=== PATIENT | male | born 1995 | race African-American/Black ===

== ENCOUNTER 2021-02-11 19:18 | Emergency (ER) | payer OTHER ==
[~2021-02-11] VITALS: Ht 180.3 cm; Wt 104.0 kg
[2021-02-11] MEDS ORDERED: FLEXERIL5 MG PO (20:17)
[2021-02-11 20:35] VITALS: BP 120/70
== END 2021-02-11 20:35 | disposition home or self-care (01) | DRG 563 ==
LOC: ED 19:18
DX: S46.912A Strain of unspecified muscle, fascia and tendon at shoulder and upper arm level, left arm, initial encounter (principal); X50.3XXA Overexertion from repetitive movements, initial encounter; Y93.89 Activity, other specified; Y92.89 Other specified places as the place of occurrence of the external cause; Y99.0 Civilian activity done for income or pay

== ENCOUNTER 2021-11-14 12:41 | Emergency (ER) | payer SELFPAY ==
[~2021-11-14] VITALS: Ht 180.3 cm; Wt 100.0 kg
[~2021-11-14 12:41] MED LIST: FLEXERIL5 MG PO
[2021-11-14] MEDS ORDERED: TESSALON PERLE100 MG PO (13:29)
[2021-11-14] MEDS ORDERED: ZPAK PO (13:29)
[2021-11-14 13:45] VITALS: BP 118/71
== END 2021-11-14 13:45 | disposition home or self-care (01) | DRG 203 ==
LOC: ED 12:41
DX: J40 Bronchitis, not specified as acute or chronic (principal); Z20.822 Contact with and (suspected) exposure to COVID-19

== ENCOUNTER 2022-11-10 17:06 | Emergency (ER) | payer SELFPAY ==
[~2022-11-10] VITALS: Ht 180.3 cm; Wt 88.5 kg
[~2022-11-10 17:06] MED LIST changes: +TESSALON PERLE100 MG PO; +ZPAK PO
[2022-11-10] MEDS ORDERED: DOXY-CAPS100 MG PO (18:34)
[2022-11-10 19:31] VITALS: BP 132/74
[2022-11-10 19:39] LABS: URINE BILIRUBIN - DIPSTICK NEGATIVE (NEGATIVE); URINE BLOOD DIPSTICK NEGATIVE (NEGATIVE); URINE COLOR YELLOW; URINE GLUCOSE - DIPSTICK NEGATIVE (NEGATIVE); URINE KETONE NEGATIVE (NEGATIVE); URINE LEUK ESTERASE NEGATIVE (NEGATIVE); URINE PROTEIN - DIPSTICK NEGATIVE (NEG-TRACE); URINE SPECIFIC GRAVITY 1.025; URINE UROBILINOGEN - DIPSTICK 0.2 E.U./dL (0.2)
[2022-11-10 19:44] LABS: URINE NITRITE - DIPSTICK NEGATIVE (Negative)
== END 2022-11-10 19:36 | disposition home or self-care (01) | DRG 728 ==
LOC: ED 17:06
PROVIDERS: Family Medicine
DX: A64 Unspecified sexually transmitted disease (principal)

== ENCOUNTER 2023-11-19 11:07 | Emergency (ER) | payer SELFPAY ==
[~2023-11-19] VITALS: Ht 180.3 cm; Wt 92.0 kg
[~2023-11-19 11:07] MED LIST changes: +DOXY-CAPS100 MG PO
[2023-11-19 11:23] VITALS: BP 128/76
[2023-11-19 11:30] VITALS: BP 125/91
[2023-11-19 11:45] VITALS: BP 128/82
[2023-11-19] MEDS ORDERED: Diph, Acellular Pertussis, Tet 0.5 ML/VIAL (Tdap) SDV IM ONE (12:40)
[2023-11-19] MEDS ORDERED: NAPROXEN500 MG PO (13:10)
[2023-11-19 13:39] VITALS: BP 126/87
== END 2023-11-19 13:45 | disposition home or self-care (01) | DRG 563 ==
LOC: ED 11:07
PROC: 2W3EX1Z Immobilization of Right Hand using Splint (ICD-10-PCS; principal; 2023-11-19)
DX: S62.344A Nondisplaced fracture of base of fourth metacarpal bone, right hand, initial encounter for closed fracture (principal); S60.511A Abrasion of right hand, initial encounter; J45.909 Unspecified asthma, uncomplicated; W20.8XXA Other cause of strike by thrown, projected or falling object, initial encounter; Y92.89 Other specified places as the place of occurrence of the external cause; Y99.0 Civilian activity done for income or pay